=== PATIENT | female | born 1955 | race Caucasian/White ===

== ENCOUNTER → 2019-11-05 | Outpatient (REF) | payer BC ==
[2019-11-06 17:44] LABS: MAU/CREAT RATIO 63.4 MCG/MG (0.0-30.0)
== END ==
LOC: M LAB REF 15:28
PROVIDERS: ATTEND Internal Medicine Endocrinology, Diabetes & Metabolism
DX: E11.65 Type 2 diabetes mellitus with hyperglycemia (principal)

== ENCOUNTER → 2020-11-30 | Outpatient (REF) | payer BC ==
[2020-11-30 18:19] LABS: MAU/CREAT RATIO 40.6 MCG/MG (0.0-30.0)
== END ==
LOC: M LAB REF 17:16
PROVIDERS: ATTEND Nurse Practitioner Family
DX: E11.65 Type 2 diabetes mellitus with hyperglycemia (principal)